=== PATIENT | male | born 1980 | race Caucasian/White ===

== ENCOUNTER → 2022-09-26 12:08 | Outpatient (CLI) | payer OTHER, SELFPAY ==
--- NOTE | 2022-09-26 12:09 | DI.US.S_ITS ---
PROCEDURE: US ABDOMEN LIMITED INDICATIONS: Mass left lower abdomen, looking for hernia vs lipoma TECHNIQUE: Real-time focused scanning was performed of the abdomen, with image documentation. COMPARISON: None. FINDINGS: In the superficial fatty soft tissues in the area of current clinical concern, left lower quadrant, there is an identifiable mass measuring up to 5.0 x 3.4 by approximately 30 cm without elevated soft tissue vascularity, peristalsis, or change with Valsalva. IMPRESSION: The large soft tissue mass discussed above is most likely a benign lipoma but given its large size surgical consultation likely is warranted and further characterization utilizing contrast-enhanced CT or MR scanning may be indicated at the discretion of the surgical supply assistant. Dictated by: Jensen Nina M.D. on 09/26/2022 at 14:18 Approved by: Jensen Nina M.D. on 09/26/2022 at 14:21
== END ==
PROVIDERS: PCP Family Medicine; Referring Provider Surgery; Visit Provider Surgery
DX: R19.04 Left lower quadrant abdominal swelling, mass and lump (principal)
CPT/HCPCS: 76705

== ENCOUNTER 2022-11-25 12:13 | Day surgery (SDC) | payer OTHER, SELFPAY ==
[2022-11-21 14:27] VITALS: BMI 33.0
--- NOTE | 2022-11-25 | PATH_ITS ---
[facility] Accession Number: [id number] No. of containers..01 Tissue . 01 Material submitted: . abdomen - LEFT LOWER ABDOMEN MASS . 01 Diagnosis: Soft Tissue, Left Lower Abdomen, Excision: Lipoma with degenerative changes. MRV 11/27/2022 1857 Local . 01 Electronically signed: . April Box MD, Pathologist NPI- [id number] . 01 Gross description: . The specimen is received in formalin labeled with the patient's name, , and left lower abdomen mass, and consists of a single yellow, lobulated, soft tissue fragment measuring 10.3 x 7.7 x 4.3 cm. The external surface is inked blue and sectioning reveals yellow, soft cut surface with pinpoint hemorrhage diffusely located across approximately 10% of the cut surface. Master Scheduler sections are submitted in cassettes A1-A4. ([id number]) /MARY 11/26/2022 0950 Local . 01 Pathologist provided ICD-10: D17.1 . 01 CPT . 245775 Specimen Comment: A courtesy copy of this report has been sent to [facility] Pathology Performed at: [address] [facility] [address] [place] [address] [address], [place], [place] [id number] MD Niraj Valdez MD Phone: [phone]
[2022-11-25 12:34] VITALS: BMI 33.0
[2022-11-25] MEDS: LACTATED RINGERS 1,000 ML 42 ML IV ×2 (12:54→14:46)
--- NOTE | 2022-11-25 13:47 | PM.HP.1 ---
History of Present Illness History of Present Illness Date Patient Seen: 11/25/22 Chief complaint: Excision Lesion/Mass Narrative: Mr. Cruz is a 42-year-old male who is known to me and was seen in my office 09/23/22 he has a lump in his left lower abdomen that has been present for several years and maybe increasing in size. This is symptomatic and uncomfortable. We evaluated this with an ultrasound and the appearance of a benign lipoma. Because of its size however there was some concern. In particular the patient has a family history which has made him sensitive to his risk for different types of cancer and so he is anxious about having it removed. [facility] Medical History (Updated 11/25/22 @ 13:50 by Maxine Tyler MD) History of COVID-19 (11/10/21) Surgical History (Updated 11/21/22 @ 14:32 by Kanchan Tillman RN) No history of previous surgery Social History household members: significant other Smoking Status: Never smoker alcohol intake: current Meds Home Medications and Allergies Home Medications Medication Instructions Recorded Confirmed Type No Known Home Medications 09/23/22 11/21/22 History Allergies Allergy/AdvReac Type Severity Reaction Status Date / Time amoxicillin Allergy Intermediate Rash Verified 11/25/22 12:34 Penicillins Allergy Intermediate Hives Verified 11/25/22 12:34 Exam Const General: cooperative, healthy appearing and comfortable Nutritional Appearance: obese Orientation: alert, awake and oriented x3 HENMT Head: normal to inspection Eyes General: appearance normal, both eyes and all related structures Resp Effort & Inspection: normal respiratory effort and able to speak in complete sentences Cardio Pulses: radial pulses present GI Inspection: obesity Palpation: soft and No tender Other: Left lower quadrant abdominal mass is palpable in the subcutaneous space it is soft and round there are no skin changes overlying it. It is minimally tender and appears to be about 5 cm in maximal diameter, consistent with ultrasound report Assessment & Plan Assessment and plan (1) Lipoma of abdominal wall: Status: Acute Plan This is a relatively large lipoma but has been present for many years. It is symptomatic and due to its size has some suspicion associated though other than the size there are no concerning characteristics. I discussed the risks benefits and alternatives of lipoma excision with the patient including but not limited to infection and wound healing problems. He understands these and would like to proceed.
[2022-11-25] MEDS: CEFAZOLIN 2 GM/100 ML PREMIX 100 ML IV (14:30)
--- NOTE | 2022-11-25 14:41 | SUR.OPER ---
Supine on padded OR bed, head on pillow, arms secured on padded arm boards at <90 degrees abduction, legs uncrossed, safety belt at thigh, tape over blanket over lower legs.
[2022-11-25 15:40] VITALS: BP 135/73; PULSE 107; RESP 18; TEMP 37.2; O2SAT 95
[2022-11-25 15:45] VITALS: BP 140/67; PULSE 109; RESP 15; O2SAT 95
[2022-11-25 15:50] VITALS: BP 153/75; PULSE 107; RESP 12; O2SAT 95
[2022-11-25] MEDS: OXYCODONE IR 5 MG TABLET PO (15:50)
--- NOTE | 2022-11-25 15:50 | PM.OP.1 ---
Procedure & Clinicians Procedure: Very large lipoma excision-12 cm maximal length Same procedure as scheduled: Yes Indications: Symptomatic lipoma in the left groin Surgeon: Maxine Tyler Click Yes if Unassisted: Yes Anesthesia Type: General Operative Notes Findings: Very large extensive lipoma which shelled out very nicely in 1 specimen when spread out it was 12 cm in length about 4 cm in width and depth. But no concerning features seen upon gross inspection of the area Specimen(s): other (Lipoma) Procedure in detail: Patient was taken to the operating room and placed supine on the operating room table bilateral SCDs were placed antibiotics were administered general endotracheal anesthesia was induced. A time-out was performed. The left groin was clipped and prepped and draped in the usual sterile fashion and 0.25% bupivacaine with epinephrine was infused overlying the palpable mass. A scalpel was then used to make an incision along Roxie's lines overlying the mass and the scalpel was used to carry the incision down around the subcutaneous tissues shelling out the lipomatous lesion. As the lesion was taken deeper into the subcutaneous area a Metzenbaum scissors was used. Local anesthetic was also used as a sort of dissector around the lesion. The lesion again did shell out quite nicely there were few small blood vessels leading into it which were cauterized but overall mostly sharp and blunt dissection was used. The specimen came out and was sort of folded over itself and so when spread out flat it actually measured 12 cm in length 4 cm in width and 4 cm in depth. The specimen was sent to pathology and the space was irrigated and inspected for hemostasis. The remainder of the local anesthetic was infused around the area. Subcutaneous tissue was closed with interrupted 3-0 Vicryl sutures and the skin was closed with a running 4-0 Monocryl the wound was dressed with Steri-Strips and a pressure dressing and Tegaderm. EBL was minimal. I understand from the anesthesia provider that patient had some bronchospasm that required intubation rather than the use of an LMA and for this reason was somewhat slow waking up from anesthesia but overall tolerated everything fine without complications. Complications: none Post-operative Condition: stable Disposition: PACU
[2022-11-25] MEDS: ONDANSETRON 4 MG/2 ML INJ IV (15:51)
[2022-11-25] MEDS: KETOROLAC 30 MG/ML VIAL IV (15:53)
[2022-11-25 15:55] VITALS: BP 141/75; PULSE 95; RESP 12; O2SAT 93
[2022-11-25 16:01] VITALS: BP 136/73; PULSE 94; RESP 15; O2SAT 98
== END 2022-11-25 16:35 | disposition home or self-care (01) ==
PROVIDERS: PCP Family Medicine; Referring Provider Surgery; Visit Provider Surgery
PROC: (CPT 11406; principal; 2022-11-25 13:15)
DX: D17.1 Benign lipomatous neoplasm of skin and subcutaneous tissue of trunk (principal)
CPT/HCPCS: 11406; 12034; J0690; J1100; J1885; J2250; J2405; J2704; J3010